=== PATIENT | male | born 1975 | race Caucasian/White ===

== ENCOUNTER 2022-08-22 21:31 | Inpatient (IN) | payer OTHER, SELFPAY ==
[2022-08-22 22:05] VITALS: BP 134/68; PULSE 65; RESP 18; TEMP 36.6; O2SAT 100
[2022-08-22] MEDS: hydrOXYzine HCL 25 MG TABLET PO (23:19)
[2022-08-22] MEDS: cloNIDine HCL 0.1 MG TABLET PO (23:19)
[2022-08-22] MEDS: traZODone HCL 50 MG TABLET PO (23:19)
--- NOTE | 2022-08-23 01:02 | PC.ADMIT ---
Saul is a 47 year old caucasion male admitted to [facility] at 2140 via stretcher from [facility] accompanied by 2 EMT's. CV signed, 15 min unit safety observation in place. Diagnosis Schizophrenia and polysubstance use. Presented to [facility] with complaints of psychological distress and SI. Saul was cooperative with admission, body /sharps check completed, denies SI/AVH, reports feels safe on the unit. CIWA every 4 hours, current score 0. No documented medical issues, he reported having brain tumors . He is alert/oriented, ambulatory with steady gait. Prescribed medication includes 240 mg of methadone daily, methadone clinic is [facility] on [address], [place]. MD Krishnan updated, orders placed. Hospitalist José Antonio notified of admission as well. Oriented to room/unit and snacks provided.
--- NOTE | 2022-08-23 06:43 | HE.PHANOTE ---
RE METHADONE PATIENT GETS 240MG FROM [facility], LAST DOSED 08/22/22 CANDI
[2022-08-23 07:56] LABS: Estimated Average Glucose 111 mg/dL; Hemoglobin A1c % 5.5 %
[2022-08-23 08:00] VITALS: BP 128/93; PULSE 93; RESP 18; TEMP 36.7; O2SAT 97
[2022-08-23 08:09] LABS: Alanine Aminotransferase 38 U/L (0-40); Albumin Level 3.5 g/dL (3.5-5.0); Alkaline Phosphatase 81 U/L (39-117); Anion Gap 13 (12-20); Aspartate Amino Transferase 30 U/L (5-37); Bilirubin Total 0.4 mg/dL (0.0-1.0); Blood Urea Nitrogen 13 mg/dL (9-16); Calcium 9.2 mg/dL (8.4-10.2); Carbon Dioxide 28 mmol/L (22-29); Chloride 101 mmol/L (96-108); Cholesterol 183 mg/dL; Estimated Glomerular Filt Rate > 60; Glucose Fasting 108 mg/dL (60-99); HDL Cholesterol 42 mg/dL; LDL Cholesterol Calculated 104 mg/dl; Potassium 4.5 mmol/L (3.3-5.1); Sodium 137 mmol/L (135-145); Total Protein 7.2 g/dL (6.5-8.0); Triglycerides 187 mg/dL
[2022-08-23] MEDS: LORazepam 1 MG TABLET PO ×4 (08:36→20:10)
[2022-08-23] MEDS: OXcarbazepine 300 MG TABLET 600 MG PO ×2 (08:36→20:10)
[2022-08-23] MEDS: Gabapentin 400 MG CAPSULE 800 MG PO ×3 (08:36→20:09)
[2022-08-23] MEDS: QUEtiapine Fumarate 100 MG TABLET PO (08:36)
[2022-08-23] MEDS: Nicotine Polacrilex 2 MG GUM 4 MG BUCCAL ×3 (08:36→20:11)
[2022-08-23] MEDS: methADONE HCl 20 MG/2 ML ORAL.CONC 240 MG PO (08:39)
[2022-08-23] MEDS: Promethazine HCL 25 MG TABLET 50 MG PO (08:45)
--- NOTE | 2022-08-23 11:19 | HO.PSYADMNOT ---
HPI Date of Service: 08/23/22 Chief Complaint: Paranoia Schizophrenia,PTSD Sources of Information: patient interviewed, chart reviewed and crisis/core team assessment reviewed HPI Subjective Notes: Huggins Warning and Conditional Voluntary Narrative: Patient is a 47-year-old male with reported history of schizophrenia, PTSD, opioid multiple psychiatric and missions, dependence on methadone and polysubstance abuse who presents for suicidal ideation and the face of substance abuse an intermittent missing her medication. Patient reports that he takes his medications regularly however he lives at home alone and says he gets lonely. Sometimes the loneliness gets overwhelming and he says he feels that there is Ms. Rhythm never ends... Patient started feeling suicidal so he got himself to the emergency room. Patient reports that he drinks pt of vodka a day and takes 6 mg of Ativan per day which she bought on the streets. He acknowledges that his substance abuse, which he uses to alleviate his depression, is also in the way of overcoming his depression and anxiety. He was last sober about year ago and relapsed this past March. Patient reports that auditory hallucinations have increased over the last week and he thinks it is probably because he has missed medications for a few days. Past Psychiatric History: Patient reports multiple psychiatric admissions Medical Evaluation Reviewed: Hospitalist Byalee Singletary [facility] Medical History (Updated 08/23/22 @ 18:19 by Hal Krishnan MD) Alcohol dependence Cocaine use disorder Epilepsy Opioid dependence Opioid use disorder PTSD (post-traumatic stress disorder) Schizophrenia Suicidal ideation Surgical History History of brain surgery Family History: Deferred Social History: Lives alone in his own apartment Has 5 children however he does not see them other than his eldest daughter Substance History: Opiate dependence on methadone; IV heroin abuse ongoing; intermittent cocaine use, Ativan abuse Trauma History: Patient endorses history of trauma but does not disclose Diagnostics Vital Signs (24Hr): Vital Signs - 24 hr 08/22/22 22:05 08/23/22 08:00 Temperature 97.8 F 98.0 F Pulse Rate 65 93 Respiratory Rate 18 18 Blood Pressure 134/68 128/93 H Pulse Oximetry 100 97 Oxygen Delivery Method Room Air Room Air Labs 08/23/22 07:16 Labs: Laboratory Results - last 48 hr 08/23/22 08/23/22 07:16 07:16 Sodium 137 Potassium 4.5 Chloride 101 Carbon Dioxide 28 Anion Gap 13 BUN 13 Creatinine 0.86 Estim Creat Clear Calc TNP Estimated GFR > 60 Fasting Glucose 108 H Estimat Average Glucose 111 Hemoglobin A1c % 5.5 Calcium 9.2 Total Bilirubin 0.4 AST 30 ALT 38 Alkaline Phosphatase 81 Total Protein 7.2 Albumin 3.5 Triglycerides 187 Cholesterol 183 LDL Cholesterol, Calc 104 HDL Cholesterol 42 Meds/Allergies Meds Home Medications Medication Instructions Recorded Confirmed Type Seroquel 150 mg PO NEEDED PRN Anxiety 08/22/22 08/22/22 History Seroquel 200 mg PO BEDTIME 08/22/22 08/22/22 History bupropion HCl 450 mg PO DAILY 08/22/22 08/22/22 History clonidine (PF) 0.1 mg PO TID PRN Anxiety 08/22/22 08/22/22 History gabapentin 800 mg tablet 800 mg PO TID 08/22/22 08/22/22 History (Neurontin) methadone 10 mg tablet 240 mg PO DAILY 08/22/22 08/22/22 History oxcarbazepine 600 mg PO BID 08/22/22 08/22/22 History promethazine 50 mg PO DAILY PRN Nausea 08/22/22 08/22/22 History quetiapine 100 mg tablet (Seroquel) 100 mg PO DAILY 08/22/22 08/22/22 History Allergies Allergies Allergy/AdvReac Type Severity Reaction Status Date / Time Penicillins Allergy Unknown Verified 08/22/22 22:06 shellfish derived Allergy Unknown Verified 08/22/22 22:05 Mental Status Exam Mental Status Exam Narrative: Pt is alert and oriented; behavior is cooperative, friendly and calm; patient is not in distress; dressed in casual attire, unkempt but with neatly cut hair and adequate hygiene; mood is described as depressed and affect congruen, down cast; eye contact appropriate; Speech is a little slow, a little low volume, normal prosody; psychomotor retardation present; thought process is organized and goal directed; Thought content is on dealing with depression and loneliness; on treatment; otherwise pertinent to relevant topics and without any delusional content, paranoid ideations or grandiosity; intermittent SI; no HI. Intermittent AH Patients insight and judgment impaired Assessment & Plan Assessment & Plan (1) PTSD (post-traumatic stress disorder): Status: Acute Code(s): F43.10 - Post-traumatic stress disorder, unspecified (2) Opioid dependence: Status: Acute Code(s): F11.20 - Opioid dependence, uncomplicated (3) Opioid use disorder: Status: Acute Code(s): F11.90 - Opioid use, unspecified, uncomplicated (4) Alcohol dependence: Status: Acute Code(s): F10.20 - Alcohol dependence, uncomplicated (5) Cocaine use disorder: Status: Acute Code(s): F14.10 - Cocaine abuse, uncomplicated Plan Patient is a 47-year-old male with reported history of schizophrenia, PTSD, opioid multiple psychiatric and missions, dependence on methadone and polysubstance abuse who presents for suicidal ideation and the face of substance abuse an intermittent missing her medication. -AH which seem to have resolved with restarting medications -patient drinks a pt of liquor a day and abuses Ativan 6 mg a day -will restart home meds except for Wellbutrin which will hold until better detoxed Plan: CV Q 15 minute checks CIWA with p.r.n. Ativan Will also schedule Ativan taper given the fact that he has been abusing Ativan as well as drinking Continue methadone 240 mg daily Continue Seroquel 100 mg daily Continue Seroquel 200 mg q.h.s. Continue gabapentin 800 mg t.i.d. Continue Trileptal 600 mg b.i.d. Old Wellbutrin XL 450 mg for now until better detox Patient educated on: diagnosis, medication risk/benefits, substance abuse and therapeutic strategies Informed Consent: understands Reason for continued inpatient stay Substantial Risk for: rapid decompensation and med/psych decompensation Statement Statement: I have reviewed the history and physical and performed a pertinent examination on my patient. No changes have occurred unless specified. If the History and Physical was not performed prior to admission, the Hospitalist's service will be consulted for completing the admission physical. Time Spent With Patient Time: Total time managing care of this patient today ____ minutes.
[2022-08-23] MEDS: cloNIDine HCL 0.1 MG TABLET PO (14:22)
--- NOTE | 2022-08-23 15:26 | HO.HSGERICON ---
History of Present Illness Data of Consult Service Date: 08/23/22 Primary Care Provider: Unknown Physician HPI 47-year-old male with history of schizophrenia, SI, admitted to [facility] for management of SI and psychosocial distress. We are asked to see this patient for admission physical. Patient currently is not suicidal, he has no acute complaint. Reports history of brain procedure due to accident and states that he has history of seizures as a result of his brain surgery, and he is on antiepileptics. He is requesting Ensure with his diet as he says the food here is not good. Otherwise denies any chest pain, no shortness of breath, no abdominal pain nausea or vomiting, no diarrhea or constipation. no urinary sx and no lower extremity edema. Vitals reviewed, stable Labs reviewed unremarkable Review of Systems Review of Systems: Yes all other systems are reviewed and are negative [facility] Medical History (Updated 08/23/22 @ 15:40 by Batsheva Chou MD) Epilepsy Schizophrenia Suicidal ideation Surgical History History of brain surgery Social History Household Members: None Housing: Apartment Do you presently have visiting nurse or other home services: No Patient Tobacco Use Status: Current everyday Tobacco user Tobacco use type: Cigarette Cigarette Packs Per Day: 1 Cigarettes Per Day: 20.0 Smoked in Last 30 Days: Yes e-Cigarette/Vaping Use: Former Use Patient Interested in Nicotine Replacement: Yes (wants gum) Patient Given Instructions on How to Stop Smoking: No (not interested at this time to quit) Second Hand Smoke Exposure: No Use of substances other than those prescribed or required for medical reasons: Yes Substance Use Type: Heroin and Other Substance Use Frequency: Recent Binge Last Used Substance: Hours (ago) Currently Displaying Signs/Symptoms of Drug Intoxication Withdrawal: No Any prior treatment program specific to substance use: Yes Have you been hit, kicked, punched, or otherwise hurt by someone within the past year? If so, by whom?: No Do you feel safe in your current relationship?: No Current Relationship Is there a partner from a previous relationship who is making you feel unsafe now?: No Are you made to feel afraid or neglected: No Advance Directives: No Advance Directives Information Provided: No Do you have thoughts of harming others: None Do you have a plan to hurt others: No Plan Recently lost weight without trying: No How much weight loss: Not applicable Eating poorly because of decreased appetite: No Nutrition screen score: 0 Nutrition Risks: No Nutritional Risk Poor oral hygiene: No Meds Allergies Allergy/AdvReac Type Severity Reaction Status Date / Time Penicillins Allergy Unknown Verified 08/22/22 22:06 shellfish derived Allergy Unknown Verified 08/22/22 22:05 Active Medications: Current Medications Acetaminophen (Acetaminophen 325 Mg Tablet) 650 mg PO Q6H PRN PRN Reason: Headache/Pain Mild Scale (1-3) Al Hydroxide/Mg Hydroxide (Magnesium Hydrox/Alum Hydrox 30 Ml Oral.Susp) 30 ml PO Q6H PRN PRN Reason: Heartburn/Nausea Clonidine HCl (Clonidine Hcl 0.1 Mg Tablet) 0.1 mg PO TID PRN PRN Reason: Anxiety Last Admin: 08/23/22 14:22 Dose: 0.1 mg Gabapentin (Gabapentin 400 Mg Capsule) 800 mg PO TID [facility] Last Admin: 08/23/22 14:19 Dose: 800 mg Hydroxyzine HCl (Hydroxyzine Hcl 25 Mg Tablet) 25 mg PO Q6H PRN PRN Reason: Anxiety Last Admin: 08/22/22 23:19 Dose: 25 mg Lorazepam (Lorazepam 1 Mg Tablet) 1 mg PO Q2H PRN PRN Reason: CIWA 6-10 Last Admin: 08/23/22 08:36 Dose: 1 mg Lorazepam (Lorazepam 1 Mg Tablet) 2 mg PO Q2H PRN PRN Reason: CIWA 11 and above Lorazepam (Lorazepam 1 Mg Tablet) 1 mg PO TID [facility] Stop: 08/24/22 23:00 Last Admin: 08/23/22 14:19 Dose: 1 mg Lorazepam (Lorazepam 1 Mg Tablet) 1 mg PO BID [facility] Stop: 08/26/22 23:00 Magnesium Hydroxide (Milk Of Magnesia 30 Ml Oral.Susp) 30 ml PO DAILY PRN PRN Reason: Constipation Methadone HCl (Methadone Hcl 20 Mg/2 Ml Oral.Conc) 240 mg PO DAILY [facility] Last Admin: 08/23/22 08:39 Dose: 240 mg Nicotine (Nicotine 21 Mg Patch.Td24) 21 mg TRANSDERMA DAILY PRN PRN Reason: Nicotine Cravings Nicotine Polacrilex (Nicotine Polacrilex 2 Mg Gum) 4 mg BUCCAL Q2H PRN PRN Reason: Nicotine Cravings Last Admin: 08/23/22 14:36 Dose: 4 mg Olanzapine (Olanzapine 5 Mg Tablet) 5 mg PO TID PRN PRN Reason: agitation Oxcarbazepine (Oxcarbazepine 300 Mg Tablet) 600 mg PO BID [facility] RAFA[facility] Last Admin: 08/23/22 08:36 Dose: 600 mg Promethazine HCl (Promethazine Hcl 25 Mg Tablet) 50 mg PO DAILY PRN PRN Reason: Nausea Last Admin: 08/23/22 08:45 Dose: 50 mg Quetiapine Fumarate (Quetiapine Fumarate 100 Mg Tablet) 100 mg PO DAILY [facility] RAFA[facility] Last Admin: 08/23/22 08:36 Dose: 100 mg Quetiapine Fumarate (Quetiapine Fumarate 50 Mg Tablet) 150 mg PO DAILY PRN PRN Reason: Anxiety Quetiapine Fumarate (Quetiapine Fumarate 200 Mg Tablet) 200 mg PO BEDTIME JOSE RAFAEL Trazodone HCl (Trazodone Hcl 50 Mg Tablet) 50 mg PO BEDTIME MRX1 PRN PRN Reason: Insomnia Last Admin: 08/22/22 23:19 Dose: 50 mg Home Medications Medication Instructions Recorded Confirmed Last Taken Type Seroquel 150 mg PO NEEDED PRN Anxiety 08/22/22 08/22/22 08/22/22 History Seroquel 200 mg PO BEDTIME 08/22/22 08/22/22 08/21/22 History bupropion HCl 450 mg PO DAILY 08/22/22 08/22/22 08/22/22 History clonidine (PF) 0.1 mg PO TID PRN Anxiety 08/22/22 08/22/22 08/22/22 History 0.1mg gabapentin 800 mg tablet 800 mg PO TID 08/22/22 08/22/22 08/22/22 14:00 History (Neurontin) methadone 10 mg tablet 240 mg PO DAILY 08/22/22 08/22/22 08/22/22 09:00 History oxcarbazepine 600 mg PO BID 08/22/22 08/22/22 08/22/22 History promethazine 50 mg PO DAILY PRN Nausea 08/22/22 08/22/22 08/22/22 History quetiapine 100 mg tablet (Seroquel) 100 mg PO DAILY 08/22/22 08/22/22 08/22/22 History Results Labs 08/23/22 07:16 Labs: Laboratory Results - last 24 hr 08/23/22 08/23/22 07:16 07:16 Anion Gap 13 Estim Creat Clear Calc TNP Estimated GFR > 60 Fasting Glucose 108 H Estimat Average Glucose 111 Hemoglobin A1c % 5.5 Calcium 9.2 Total Bilirubin 0.4 AST 30 ALT 38 Alkaline Phosphatase 81 Total Protein 7.2 Albumin 3.5 Triglycerides 187 Cholesterol 183 LDL Cholesterol, Calc 104 HDL Cholesterol 42 Assessment and Plan (1) Psychosocial distress: Status: Acute (2) Suicidal ideation: Status: Acute Plan 47-year-old male with past medical history of epilepsy, SI as well as schizophrenia comes into the hospital with psychosocial distress and SI We are asked to see this patient for admission to physical # psychosocial distress - management per psych team - currently not having any SI # epilepsy - continue antiepileptics Thank you for allowing us to see this patient, we will sign off at this time patient has no acute medical issues Time Spent With Patient Time: Total time managing care of this patient today ____ minutes. Physical Exam Vital Signs: Last Vital Signs Temp 98.0 F 08/23/22 08:00 Pulse 93 08/23/22 08:00 Resp 18 08/23/22 08:00 BP 128/93 H 08/23/22 08:00 Pulse Ox 97 08/23/22 08:00 O2 Del Method Room Air 08/23/22 08:00 Const General: cooperative, comfortable and no acute distress Resp Other: Lungs clear to auscultations No respiratory distress Cardio Other: Normal Rate and rhythm GI Other: Abdomen is soft, nontender, no rebound or guarding Skin Other: No lesions Neuro Other: Alert oriented x3 Cranial nerves: Yes CN's II-XII intact bilaterally Extrem Other: No lower extremity edema
[2022-08-23 18:00] VITALS: BP 136/79; PULSE 78; RESP 18; TEMP 36.6; O2SAT 98
[2022-08-23] MEDS: QUEtiapine Fumarate 200 MG TABLET PO (20:10)
[2022-08-23] MEDS: traZODone HCL 50 MG TABLET PO (20:11)
[2022-08-23] MEDS: hydrOXYzine HCL 25 MG TABLET PO (20:11)
[2022-08-23] MEDS: Acetaminophen 325 MG TABLET 650 MG PO (20:14)
[2022-08-23] MEDS: LORazepam 1 MG TABLET 2 MG PO (21:50)
[2022-08-24] MEDS: LORazepam 1 MG TABLET PO ×5 (03:16→13:55)
[2022-08-24 08:00] VITALS: BP 136/102; PULSE 84; RESP 18; TEMP 36; O2SAT 97
[2022-08-24] MEDS: QUEtiapine Fumarate 100 MG TABLET PO (08:21)
[2022-08-24] MEDS: Gabapentin 400 MG CAPSULE 800 MG PO ×3 (08:21→20:31)
[2022-08-24] MEDS: Nicotine Polacrilex 2 MG GUM 4 MG BUCCAL ×2 (08:21→20:31)
[2022-08-24] MEDS: OXcarbazepine 300 MG TABLET 600 MG PO ×2 (08:21→20:31)
[2022-08-24] MEDS: Promethazine HCL 25 MG TABLET 50 MG PO (08:21)
[2022-08-24] MEDS: methADONE HCl 20 MG/2 ML ORAL.CONC 240 MG PO (08:22)
--- NOTE | 2022-08-24 10:34 | HO.PSYCHPN ---
Subjective Subjective Date of Service: 08/24/22 Reason For Visit: Paranoia Schizophrenia,PTSD Interim History: Met with patient; discussed with team Patient reports he is feeling better today but still feeling much withdrawal. Security Compliance Engineer extended Ativan taper since patient is significantly scoring on CIWA.. Patient denies AH which he says is gotten better. Denies SI. Shared that he has grateful for help received on the unit. Discussed history of symptoms and patient said that he has auditory hallucinations that tell him to do bad things even during times absent of depression; when he gets depressed, AH gets much worse. Denies any history of manic episodes. Discussed patient's seizure history and he has not had any seizures since several months ago. -added clonidine for anxiety since Ativan is to be tapered and wanted to see if this could help with anxiety rather than increasing total daily dose of Seroquel Diagnostics Vital Signs (24Hr): Vital Signs - 24 hr 08/23/22 18:00 08/24/22 08:00 Temperature 97.8 F 96.8 F Pulse Rate 78 84 Respiratory Rate 18 18 Blood Pressure 136/79 136/102 H Pulse Oximetry 98 97 Oxygen Delivery Method Room Air Room Air Labs 08/23/22 07:16 Labs: Laboratory Results - last 48 hr 08/23/22 08/23/22 07:16 07:16 Sodium 137 Potassium 4.5 Chloride 101 Carbon Dioxide 28 Anion Gap 13 BUN 13 Creatinine 0.86 Estim Creat Clear Calc TNP Estimated GFR > 60 Fasting Glucose 108 H Estimat Average Glucose 111 Hemoglobin A1c % 5.5 Calcium 9.2 Total Bilirubin 0.4 AST 30 ALT 38 Alkaline Phosphatase 81 Total Protein 7.2 Albumin 3.5 Triglycerides 187 Cholesterol 183 LDL Cholesterol, Calc 104 HDL Cholesterol 42 Medications Medications Current Medications Acetaminophen (Acetaminophen 325 Mg Tablet) 650 mg PO Q6H PRN PRN Reason: Headache/Pain Mild Scale (1-3) Last Admin: 08/23/22 20:14 Dose: 650 mg Al Hydroxide/Mg Hydroxide (Magnesium Hydrox/Alum Hydrox 30 Ml Oral.Susp) 30 ml PO Q6H PRN PRN Reason: Heartburn/Nausea Clonidine HCl (Clonidine Hcl 0.1 Mg Tablet) 0.1 mg PO TID PRN PRN Reason: Anxiety Last Admin: 08/23/22 14:22 Dose: 0.1 mg Gabapentin (Gabapentin 400 Mg Capsule) 800 mg PO TID JOSE RAFAEL Last Admin: 08/24/22 08:21 Dose: 800 mg Hydroxyzine HCl (Hydroxyzine Hcl 25 Mg Tablet) 25 mg PO Q6H PRN PRN Reason: Anxiety Last Admin: 08/23/22 20:11 Dose: 25 mg Lorazepam (Lorazepam 1 Mg Tablet) 1 mg PO Q2H PRN PRN Reason: CIWA 6-10 Last Admin: 08/24/22 08:21 Dose: 1 mg Lorazepam (Lorazepam 1 Mg Tablet) 2 mg PO Q2H PRN PRN Reason: CIWA 11 and above Last Admin: 08/23/22 21:50 Dose: 2 mg Lorazepam (Lorazepam 1 Mg Tablet) 1 mg PO TID COUNT INCLUDES THE [facility] Stop: 08/24/22 23:00 Last Admin: 08/24/22 08:21 Dose: 1 mg Lorazepam (Lorazepam 1 Mg Tablet) 1 mg PO BID COUNT INCLUDES THE [facility] Stop: 08/26/22 23:00 Magnesium Hydroxide (Milk Of Magnesia 30 Ml Oral.Susp) 30 ml PO DAILY PRN PRN Reason: Constipation Methadone HCl (Methadone Hcl 20 Mg/2 Ml Oral.Conc) 240 mg PO DAILY COUNT INCLUDES THE [facility] Last Admin: 08/24/22 08:22 Dose: 240 mg Nicotine (Nicotine 21 Mg Patch.Td24) 21 mg TRANSDERMA DAILY PRN PRN Reason: Nicotine Cravings Nicotine Polacrilex (Nicotine Polacrilex 2 Mg Gum) 4 mg BUCCAL Q2H PRN PRN Reason: Nicotine Cravings Last Admin: 08/24/22 08:21 Dose: 4 mg Olanzapine (Olanzapine 5 Mg Tablet) 5 mg PO TID PRN PRN Reason: agitation Oxcarbazepine (Oxcarbazepine 300 Mg Tablet) 600 mg PO BID COUNT INCLUDES THE [facility] Last Admin: 08/24/22 08:21 Dose: 600 mg Promethazine HCl (Promethazine Hcl 25 Mg Tablet) 50 mg PO DAILY PRN PRN Reason: Nausea Last Admin: 08/24/22 08:21 Dose: 50 mg Quetiapine Fumarate (Quetiapine Fumarate 100 Mg Tablet) 100 mg PO DAILY COUNT INCLUDES THE [facility] Last Admin: 08/24/22 08:21 Dose: 100 mg Quetiapine Fumarate (Quetiapine Fumarate 50 Mg Tablet) 150 mg PO DAILY PRN PRN Reason: Anxiety Quetiapine Fumarate (Quetiapine Fumarate 200 Mg Tablet) 200 mg PO BEDTIME COUNT INCLUDES THE [facility] Last Admin: 08/23/22 20:10 Dose: 200 mg Trazodone HCl (Trazodone Hcl 50 Mg Tablet) 50 mg PO BEDTIME MRX1 PRN PRN Reason: Insomnia Last Admin: 08/23/22 20:11 Dose: 50 mg Allergies Allergies Allergy/AdvReac Type Severity Reaction Status Date / Time Penicillins Allergy Unknown Verified 08/22/22 22:06 shellfish derived Allergy Unknown Verified 08/22/22 22:05 Assessment & Plan Assessment & Plan (1) Schizoaffective disorder, depressive type: Status: Acute Code(s): F25.1 - Schizoaffective disorder, depressive type (2) PTSD (post-traumatic stress disorder): Status: Acute Code(s): F43.10 - Post-traumatic stress disorder, unspecified (3) Opioid dependence: Status: Acute Code(s): F11.20 - Opioid dependence, uncomplicated (4) Opioid use disorder: Status: Acute Code(s): F11.90 - Opioid use, unspecified, uncomplicated (5) Alcohol dependence: Status: Acute Code(s): F10.20 - Alcohol dependence, uncomplicated (6) Cocaine use disorder: Status: Acute Code(s): F14.10 - Cocaine abuse, uncomplicated (7) Epilepsy: Status: Acute Code(s): G40.909 - Epilepsy, unspecified, not intractable, without status epilepticus Plan Patient is a 47-year-old male with reported history of schizophrenia, PTSD, opioid multiple psychiatric and missions, dependence on methadone and polysubstance abuse who presents for suicidal ideation and the face of substance abuse an intermittent missing her medication. -AH which seem to have resolved with restarting medications -patient drinks a pt of liquor a day and abuses Ativan 6 mg a day -will restart home meds except for Wellbutrin which will hold until better detoxed Hosptial course: 08/24 Patient reports he is feeling better today but still feeling much withdrawal. Security Compliance Engineer extended Ativan taper since patient is significantly scoring on CIWA.. Patient denies AH which he says is gotten better. Denies SI. Shared that he has grateful for help received on the unit. Discussed history of symptoms and patient said that he has auditory hallucinations that tell him to do bad things even during times absent of depression; when he gets depressed, AH gets much worse. Denies any history of manic episodes. Discussed patient's seizure history and he has not had any seizures since several months ago. -added clonidine for anxiety since Ativan is to be tapered and wanted to see if this could help with anxiety rather than increasing total daily dose of Seroquel; patient agrees if he stays sober maybe he will need Ativan so much -will change diagnosis to schizoaffective Plan: CV Q 15 minute checks CIWA with p.r.n. Ativan Will also schedule Ativan taper given the fact that he has been abusing Ativan as well as drinking AND has a seizure disorder Continue methadone 240 mg daily Continue Seroquel 100 mg daily Continue Seroquel 200 mg q.h.s. Continue gabapentin 800 mg t.i.d. for seizure disorder Continue Trileptal 600 mg b.i.d. for seizure disorder Holding Wellbutrin XL 450 mg for now until better detox and patient has seizure disorder Patient could use help setting up social interactions post discharge, as loneliness is a factor in relapse Hospitalist note: 47-year-old male with past medical history of epilepsy, SI as well as schizophrenia comes into the hospital with psychosocial distress and SI epilepsy - continue antiepileptics Patient educated on: diagnosis, medication risk/benefits, substance abuse and medical condition Informed Consent: understands Reason for continued inpatient stay Substantial Risk for: rapid decompensation Time Spent With Patient Time: Total time managing care of this patient today ____ minutes.
[2022-08-24] MEDS: cloNIDine HCL 0.1 MG TABLET PO (16:53)
[2022-08-24 17:00] VITALS: BP 152/94; PULSE 83; TEMP 36.4; O2SAT 96
[2022-08-24] MEDS: LORazepam 1 MG TABLET 2 MG PO ×2 (17:06→20:31)
--- NOTE | 2022-08-24 18:19 | PC.NURSE ---
Patient's CIWA score was 21. Prn Clonazapam and Clonidine were given. Rechecked patient at 1715. Patient is sound asleep in NAD, Dr. Krishnan aware of CIWA score and effectiveness of prn meds.
[2022-08-24] MEDS: QUEtiapine Fumarate 200 MG TABLET PO (20:31)
[2022-08-24] MEDS: traZODone HCL 50 MG TABLET PO (20:32)
[2022-08-25] MEDS: LORazepam 1 MG TABLET 2 MG PO (07:52)
[2022-08-25] MEDS: Gabapentin 400 MG CAPSULE 800 MG PO ×3 (07:52→23:31)
[2022-08-25] MEDS: QUEtiapine Fumarate 100 MG TABLET PO (07:52)
[2022-08-25] MEDS: OXcarbazepine 300 MG TABLET 600 MG PO ×2 (07:52→23:32)
[2022-08-25 07:55] VITALS: BP 126/103; PULSE 84; RESP 20; TEMP 36.1; O2SAT 95
[2022-08-25] MEDS: methADONE HCl 20 MG/2 ML ORAL.CONC 240 MG PO (08:07)
[2022-08-25] MEDS: chlordiazePOXIDE HCl 25 MG CAPSULE 50 MG PO ×2 (10:54→17:12)
[2022-08-25] MEDS: cloNIDine HCL 0.1 MG TABLET PO ×2 (10:54→23:35)
[2022-08-25] MEDS: Promethazine HCL 25 MG TABLET 50 MG PO (12:13)
[2022-08-25] MEDS: hydrOXYzine HCL 25 MG TABLET PO (12:13)
--- NOTE | 2022-08-25 13:47 | HO.PSYCHPN ---
Subjective Subjective Date of Service: 08/25/22 Reason For Visit: Paranoia Schizophrenia,PTSD Subjective Notes: Conditional Voluntary Healthcare Proxy: No Guardianship: No Medical Problems Affecting Mental Status: No Interim History: Pt in withdrawal with hx of seizure disorder. Ativan change to Librium with standing and prn dosing. Pt reports purchasing Ativan from the street and wants to see if OP team can prescribe him something for anxiety. He works with Dr. Linares from [facility] (message left). He is hoping to manage anxiety safely with a prescription vs having to return to the street. Reports antipsychotics increase psychotic sx, for example a recent increase of Seroquel precipitated increase in hallucinations. All I want is a fair chance to manage my symptoms. Pt reports he has housing, will not need referrals and all of the positive changes he has made in his life are due to his advocacy for him receiving the appropriate medications. States he is wanting to work with his OP team but needs to be heard regarding his needs for sx mgt. Medication Compliance: Yes Side effects from medications: No Attending Groups: No Review of Systems Acute medical concerns: No Medical Review of Systems: unchanged Mental Status Exam Mental Status Exam Patient Appearance: Fatigued Patient Orientation: Person, Place, Time and Situation Level of Consciousness: Alert Patient Behavior: Talkative and Good Eye Contact Mood Description: Depressed and Apprehensive Affect Description: Apprehensive Patient Cognition Impaired: No Ability to Follow Directions: Good Speech Pattern: Spontaneous Speech Memory Description: Intact Hallucinations: None Delusions: Not Present Thought Process: Distracted Thought Content: positive for [place] and positive for Circumstantial Depressive Symptoms: Increased Anxiety and Increased Irritability Judgement: Good Diagnostics Vital Signs (24Hr): Vital Signs - 24 hr 08/24/22 17:00 08/25/22 07:55 Temperature 97.5 F 97.0 F Pulse Rate 83 84 Respiratory Rate 20 Blood Pressure 152/94 H 126/103 H Pulse Oximetry 96 95 Oxygen Delivery Method Room Air Room Air Labs 08/23/22 07:16 Medications Medications Current Medications Acetaminophen (Acetaminophen 325 Mg Tablet) 650 mg PO Q6H PRN PRN Reason: Headache/Pain Mild Scale (1-3) Last Admin: 08/23/22 20:14 Dose: 650 mg Al Hydroxide/Mg Hydroxide (Magnesium Hydrox/Alum Hydrox 30 Ml Oral.Susp) 30 ml PO Q6H PRN PRN Reason: Heartburn/Nausea Chlordiazepoxide HCl (Chlordiazepoxide Hcl 25 Mg Capsule) 25 mg PO BID [facility] Chlordiazepoxide HCl (Chlordiazepoxide Hcl 25 Mg Capsule) 25 mg PO Q2H PRN PRN Reason: CIWA 6-10 Chlordiazepoxide HCl (Chlordiazepoxide Hcl 25 Mg Capsule) 50 mg PO Q2H PRN PRN Reason: ciwa 11 and above Last Admin: 08/25/22 10:54 Dose: 50 mg Clonidine HCl (Clonidine Hcl 0.1 Mg Tablet) 0.1 mg PO Q4H PRN PRN Reason: Anxiety Last Admin: 08/25/22 10:54 Dose: 0.1 mg Gabapentin (Gabapentin 400 Mg Capsule) 800 mg PO TID [facility] Last Admin: 08/25/22 07:52 Dose: 800 mg Hydroxyzine HCl (Hydroxyzine Hcl 25 Mg Tablet) 25 mg PO Q6H PRN PRN Reason: Anxiety Last Admin: 08/25/22 12:13 Dose: 25 mg Magnesium Hydroxide (Milk Of Magnesia 30 Ml Oral.Susp) 30 ml PO DAILY PRN PRN Reason: Constipation Methadone HCl (Methadone Hcl 20 Mg/2 Ml Oral.Conc) 240 mg PO DAILY [facility] Last Admin: 08/25/22 08:07 Dose: 240 mg Nicotine (Nicotine 21 Mg Patch.Td24) 21 mg TRANSDERMA DAILY PRN PRN Reason: Nicotine Cravings Nicotine Polacrilex (Nicotine Polacrilex 2 Mg Gum) 4 mg BUCCAL Q2H PRN PRN Reason: Nicotine Cravings Last Admin: 08/24/22 20:31 Dose: 4 mg Oxcarbazepine (Oxcarbazepine 300 Mg Tablet) 600 mg PO BID [facility] Last Admin: 08/25/22 07:52 Dose: 600 mg Promethazine HCl (Promethazine Hcl 25 Mg Tablet) 50 mg PO DAILY PRN PRN Reason: Nausea Last Admin: 08/25/22 12:13 Dose: 50 mg Quetiapine Fumarate (Quetiapine Fumarate 100 Mg Tablet) 100 mg PO DAILY [facility] Last Admin: 08/25/22 07:52 Dose: 100 mg Quetiapine Fumarate (Quetiapine Fumarate 200 Mg Tablet) 200 mg PO BEDTIME [facility] Last Admin: 08/24/22 20:31 Dose: 200 mg Quetiapine Fumarate (Quetiapine Fumarate 25 Mg Tablet) 25 mg PO TID PRN PRN Reason: Anxiety Trazodone HCl (Trazodone Hcl 50 Mg Tablet) 50 mg PO BEDTIME MRX1 PRN PRN Reason: Insomnia Last Admin: 08/24/22 20:32 Dose: 50 mg Allergies Allergies Allergy/AdvReac Type Severity Reaction Status Date / Time Penicillins Allergy Unknown Verified 08/22/22 22:06 seafood Allergy Unknown Verified 08/24/22 17:47 shellfish derived Allergy Unknown Verified 08/22/22 22:05 Assessment & Plan Assessment & Plan (1) Schizoaffective disorder, depressive type: Status: Acute Code(s): F25.1 - Schizoaffective disorder, depressive type (2) PTSD (post-traumatic stress disorder): Status: Acute Code(s): F43.10 - Post-traumatic stress disorder, unspecified (3) Opioid dependence: Status: Acute Code(s): F11.20 - Opioid dependence, uncomplicated (4) Opioid use disorder: Status: Acute Code(s): F11.90 - Opioid use, unspecified, uncomplicated (5) Alcohol dependence: Status: Acute Code(s): F10.20 - Alcohol dependence, uncomplicated (6) Cocaine use disorder: Status: Acute Code(s): F14.10 - Cocaine abuse, uncomplicated (7) Epilepsy: Status: Acute Code(s): G40.909 - Epilepsy, unspecified, not intractable, without status epilepticus Plan Patient is a 47-year-old male with reported history of schizophrenia, PTSD, opioid multiple psychiatric and missions, dependence on methadone and polysubstance abuse who presents for suicidal ideation and the face of substance abuse an intermittent missing her medication. -AH which seem to have resolved with restarting medications -patient drinks a pt of liquor a day and abuses Ativan 6 mg a day -will restart home meds except for Wellbutrin which will hold until better detoxed Hosptial course: 08/24 Patient reports he is feeling better today but still feeling much withdrawal. 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 Patient denies AH which he says is gotten better. Denies SI. Shared that he has grateful for help received on the unit. Discussed history of symptoms and patient said that he has auditory hallucinations that tell him to do bad things even during times absent of depression; when he gets depressed, AH gets much worse. Denies any history of manic episodes. Discussed patient's seizure history and he has not had any seizures since several months ago. -added clonidine for anxiety since Ativan is to be tapered and wanted to see if this could help with anxiety rather than increasing total daily dose of Seroquel; patient agrees if he stays sober maybe he will need Ativan so much -will change diagnosis to schizoaffective 08/25/22- Ativan change to Librium for detox, standing dose, and prn's Continue to monitor Plan: CV Q 15 minute checks CIWA with p.r.n. Ativan Will also schedule Ativan taper given the fact that he has been abusing Ativan as well as drinking AND has a seizure disorder Continue methadone 240 mg daily Continue Seroquel 100 mg daily Continue Seroquel 200 mg q.h.s. Continue gabapentin 800 mg t.i.d. for seizure disorder Continue Trileptal 600 mg b.i.d. for seizure disorder Holding Wellbutrin XL 450 mg for now until better detox and patient has seizure disorder Patient could use help setting up social interactions post discharge, as loneliness is a factor in relapse Hospitalist note: 47-year-old male with past medical history of epilepsy, SI as well as schizophrenia comes into the hospital with psychosocial distress and SI epilepsy - continue antiepileptics Patient educated on: medication risk/benefits Informed Consent: understands Reason for continued inpatient stay Substantial Risk for: med/psych decompensation Time Spent With Patient Time: Total time managing care of this patient today ____ minutes.
[2022-08-25] MEDS: chlordiazePOXIDE HCl 25 MG CAPSULE PO ×2 (15:07→23:31)
[2022-08-25 23:30] VITALS: BP 142/97; PULSE 91; TEMP 36.2; O2SAT 97
[2022-08-25] MEDS: QUEtiapine Fumarate 200 MG TABLET PO (23:32)
[2022-08-26 06:00] VITALS: BP 120/89; PULSE 89; RESP 16; TEMP 36.6; O2SAT 95
[2022-08-26] MEDS: methADONE HCl 20 MG/2 ML ORAL.CONC 240 MG PO (08:44)
[2022-08-26] MEDS: QUEtiapine Fumarate 100 MG TABLET PO (08:44)
[2022-08-26] MEDS: OXcarbazepine 300 MG TABLET 600 MG PO ×2 (08:45→19:59)
[2022-08-26] MEDS: Gabapentin 400 MG CAPSULE 800 MG PO ×3 (08:45→19:59)
[2022-08-26] MEDS: chlordiazePOXIDE HCl 25 MG CAPSULE PO ×3 (08:45→16:52)
[2022-08-26] MEDS: cloNIDine HCL 0.1 MG TABLET PO (08:45)
[2022-08-26] MEDS: hydrOXYzine HCL 25 MG TABLET PO (08:45)
--- NOTE | 2022-08-26 12:25 | HO.PSYCHPN ---
Subjective Subjective Date of Service: 08/26/22 Reason For Visit: Paranoia Schizophrenia,PTSD Subjective Notes: Conditional Voluntary Healthcare Proxy: No Guardianship: No Medical Problems Affecting Mental Status: No Interim History: Pt sleeping when attempted to see today. Preferred to rest. Later in the day pt with agitation. Dr. Krishnan increased standing Librium to 50 mg tid. No return call from OP group yet. CIWA monitoring continues. Pt hoping to discharge by Thursday, will continue to monitor for detox and medical needs, along with OP planning. Medication Compliance: Yes Side effects from medications: No Attending Groups: Yes Review of Systems Acute medical concerns: No Medical Review of Systems: unchanged Mental Status Exam Mental Status Exam Patient Appearance: Fatigued Patient Orientation: Person, Place, Time and Situation Level of Consciousness: Alert Patient Behavior: Talkative and Good Eye Contact Mood Description: Depressed and Apprehensive Affect Description: Apprehensive Patient Cognition Impaired: No Ability to Follow Directions: Good Speech Pattern: Spontaneous Speech Memory Description: Intact Hallucinations: None Delusions: Not Present Thought Process: Distracted Thought Content: positive for [place] and positive for Circumstantial Depressive Symptoms: Increased Anxiety and Increased Irritability Judgement: Good Diagnostics Vital Signs (24Hr): Vital Signs - 24 hr 08/25/22 23:30 08/26/22 06:00 Temperature 97.2 F 97.8 F Pulse Rate 91 89 Respiratory Rate 16 Blood Pressure 142/97 H 120/89 Pulse Oximetry 97 95 Oxygen Delivery Method Room Air Room Air Labs 08/23/22 07:16 Medications Medications Current Medications Acetaminophen (Acetaminophen 325 Mg Tablet) 650 mg PO Q6H PRN PRN Reason: Headache/Pain Mild Scale (1-3) Last Admin: 08/23/22 20:14 Dose: 650 mg Al Hydroxide/Mg Hydroxide (Magnesium Hydrox/Alum Hydrox 30 Ml Oral.Susp) 30 ml PO Q6H PRN PRN Reason: Heartburn/Nausea Chlordiazepoxide HCl (Chlordiazepoxide Hcl 25 Mg Capsule) 25 mg PO Q2H PRN PRN Reason: CIWA 6-10 Chlordiazepoxide HCl (Chlordiazepoxide Hcl 25 Mg Capsule) 50 mg PO Q2H PRN PRN Reason: ciwa 11 and above Last Admin: 08/25/22 17:12 Dose: 50 mg Chlordiazepoxide HCl (Chlordiazepoxide Hcl 25 Mg Capsule) 25 mg PO TID [facility] Last Admin: 08/26/22 08:45 Dose: 25 mg Clonidine HCl (Clonidine Hcl 0.1 Mg Tablet) 0.1 mg PO Q4H PRN PRN Reason: Anxiety Last Admin: 08/26/22 08:45 Dose: 0.1 mg Gabapentin (Gabapentin 400 Mg Capsule) 800 mg PO TID [facility] Last Admin: 08/26/22 08:45 Dose: 800 mg Hydroxyzine HCl (Hydroxyzine Hcl 25 Mg Tablet) 25 mg PO Q6H PRN PRN Reason: Anxiety Last Admin: 08/26/22 08:45 Dose: 25 mg Magnesium Hydroxide (Milk Of Magnesia 30 Ml Oral.Susp) 30 ml PO DAILY PRN PRN Reason: Constipation Methadone HCl (Methadone Hcl 20 Mg/2 Ml Oral.Conc) 240 mg PO DAILY [facility] Last Admin: 08/26/22 08:44 Dose: 240 mg Nicotine (Nicotine 21 Mg Patch.Td24) 21 mg TRANSDERMA DAILY PRN PRN Reason: Nicotine Cravings Nicotine Polacrilex (Nicotine Polacrilex 2 Mg Gum) 4 mg BUCCAL Q2H PRN PRN Reason: Nicotine Cravings Last Admin: 08/24/22 20:31 Dose: 4 mg Oxcarbazepine (Oxcarbazepine 300 Mg Tablet) 600 mg PO BID [facility] Last Admin: 08/26/22 08:45 Dose: 600 mg Promethazine HCl (Promethazine Hcl 25 Mg Tablet) 50 mg PO DAILY PRN PRN Reason: Nausea Last Admin: 08/25/22 12:13 Dose: 50 mg Quetiapine Fumarate (Quetiapine Fumarate 100 Mg Tablet) 100 mg PO DAILY [facility] Last Admin: 08/26/22 08:44 Dose: 100 mg Quetiapine Fumarate (Quetiapine Fumarate 200 Mg Tablet) 200 mg PO BEDTIME [facility] Last Admin: 08/25/22 23:32 Dose: 200 mg Quetiapine Fumarate (Quetiapine Fumarate 25 Mg Tablet) 25 mg PO TID PRN PRN Reason: Anxiety Trazodone HCl (Trazodone Hcl 50 Mg Tablet) 50 mg PO BEDTIME MRX1 PRN PRN Reason: Insomnia Last Admin: 08/24/22 20:32 Dose: 50 mg Allergies Allergies Allergy/AdvReac Type Severity Reaction Status Date / Time Penicillins Allergy Unknown Verified 08/22/22 22:06 seafood Allergy Unknown Verified 08/24/22 17:47 shellfish derived Allergy Unknown Verified 08/22/22 22:05 Assessment & Plan Assessment & Plan (1) Schizoaffective disorder, depressive type: Status: Acute Code(s): F25.1 - Schizoaffective disorder, depressive type (2) PTSD (post-traumatic stress disorder): Status: Acute Code(s): F43.10 - Post-traumatic stress disorder, unspecified (3) Opioid dependence: Status: Acute Code(s): F11.20 - Opioid dependence, uncomplicated (4) Opioid use disorder: Status: Acute Code(s): F11.90 - Opioid use, unspecified, uncomplicated (5) Alcohol dependence: Status: Acute Code(s): F10.20 - Alcohol dependence, uncomplicated (6) Cocaine use disorder: Status: Acute Code(s): F14.10 - Cocaine abuse, uncomplicated (7) Epilepsy: Status: Acute Code(s): G40.909 - Epilepsy, unspecified, not intractable, without status epilepticus Plan Patient is a 47-year-old male with reported history of schizophrenia, PTSD, opioid multiple psychiatric and missions, dependence on methadone and polysubstance abuse who presents for suicidal ideation and the face of substance abuse an intermittent missing her medication. -AH which seem to have resolved with restarting medications -patient drinks a pt of liquor a day and abuses Ativan 6 mg a day -will restart home meds except for Wellbutrin which will hold until better detoxed Hosptial course: 08/24 Patient reports he is feeling better today but still feeling much withdrawal. 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 Patient denies AH which he says is gotten better. Denies SI. Shared that he has grateful for help received on the unit. Discussed history of symptoms and patient said that he has auditory hallucinations that tell him to do bad things even during times absent of depression; when he gets depressed, AH gets much worse. Denies any history of manic episodes. Discussed patient's seizure history and he has not had any seizures since several months ago. -added clonidine for anxiety since Ativan is to be tapered and wanted to see if this could help with anxiety rather than increasing total daily dose of Seroquel; patient agrees if he stays sober maybe he will need Ativan so much -will change diagnosis to schizoaffective 08/26/22- Increase Librium to 50 mg tid Plan: CV Q 15 minute checks CIWA with p.r.n. Ativan Will also schedule Ativan taper given the fact that he has been abusing Ativan as well as drinking AND has a seizure disorder Continue methadone 240 mg daily Continue Seroquel 100 mg daily Continue Seroquel 200 mg q.h.s. Continue gabapentin 800 mg t.i.d. for seizure disorder Continue Trileptal 600 mg b.i.d. for seizure disorder Holding Wellbutrin XL 450 mg for now until better detox and patient has seizure disorder Patient could use help setting up social interactions post discharge, as loneliness is a factor in relapse Hospitalist note: 47-year-old male with past medical history of epilepsy, SI as well as schizophrenia comes into the hospital with psychosocial distress and SI epilepsy - continue antiepileptics Informed Consent: understands Reason for continued inpatient stay Substantial Risk for: med/psych decompensation Time Spent With Patient Time: Total time managing care of this patient today ____ minutes.
[2022-08-26] MEDS: Promethazine HCL 25 MG TABLET 50 MG PO (16:53)
[2022-08-26 18:00] VITALS: RESP 16
[2022-08-26] MEDS: QUEtiapine Fumarate 200 MG TABLET PO (19:59)
[2022-08-26] MEDS: chlordiazePOXIDE HCl 25 MG CAPSULE 50 MG PO (19:59)
[2022-08-27] MEDS: OXcarbazepine 300 MG TABLET 600 MG PO ×2 (08:13→20:40)
[2022-08-27] MEDS: Gabapentin 400 MG CAPSULE 800 MG PO ×3 (08:13→20:39)
[2022-08-27] MEDS: Thiamine HCL 100 MG TABLET PO (08:13)
[2022-08-27] MEDS: Multivitamin TABLET 1 TAB PO (08:13)
[2022-08-27] MEDS: chlordiazePOXIDE HCl 25 MG CAPSULE 50 MG PO ×3 (08:13→20:40)
[2022-08-27] MEDS: Folic Acid 1 MG TABLET PO (08:13)
[2022-08-27] MEDS: methADONE HCl 20 MG/2 ML ORAL.CONC 240 MG PO (08:17)
[2022-08-27 08:29] VITALS: BP 131/73; PULSE 89; RESP 16; TEMP 36.7; O2SAT 96
[2022-08-27 08:37] LABS: MANUAL DIFF FLAG NO
[2022-08-27 08:43] LABS: Basophils Absolute Auto 0.1 X10*3/uL (0.0-0.2); Basophils Percent Auto 0.6 % (0-2); Eosinophils Absolute Auto 0.4 X10*3/uL (0.0-0.4); Eosinophils Percent Auto 4.3 % (0-4); Hematocrit 49.3 % (42.0-52.0); Hemoglobin 15.9 g/dl (14.0-18.0); Imm Gran Pct Auto 3.1 % (0.0-0.4); Lymphocytes Absolute Auto 3.1 X10*3/uL (1.2-4.9); Lymphocytes Percent Auto 32.6 % (20-40); Mean Corpuscular HGB Conc 32.3 g/dl (31.0-36.0); Mean Corpuscular Hemoglobin 30.9 pg (27.0-33.0); Mean Corpuscular Volume 95.9 fL (80.0-98.0); Mean Platelet Volume 10.2 fL (9.4-12.4); Monocytes Absolute Auto 1.3 X10*3/uL (0.1-1.2); Neutrophils Absolute Auto 4.4 x10*3/uL (2.0-8.3); Neutrophils Percent Auto 46.4 % (45-73); Platelet Count 241 X10*3/uL (160-400); Red Blood Count 5.14 X10*6/uL (4.60-5.80); Red Cell Distribution Width 13.6 % (11.0-16.0); White Blood Count 9.6 X10*3/uL (4.8-10.8)
[2022-08-27 09:44] LABS: Thyroid Stimulating Hormone 1.62 uIU/mL (0.32-4.0)
[2022-08-27 09:56] VITALS: BP 146/96; PULSE 91
[2022-08-27 09:56] LABS: Folate 12.3 ng/mL (> or = 4.0); Vitamin B12 623 pg/mL (200-900)
[2022-08-27] MEDS: cloNIDine HCL 0.1 MG TABLET PO ×3 (09:58→20:40)
[2022-08-27 14:44] VITALS: BP 136/94; PULSE 84
--- NOTE | 2022-08-27 17:26 | HO.PSYCHPN ---
Subjective Subjective Date of Service: 08/27/22 Reason For Visit: Paranoia Schizophrenia,PTSD Subjective Notes: Conditional Voluntary Healthcare Proxy: No Guardianship: No Medical Problems Affecting Mental Status: No Interim History: Review with team who reports pt has lability of mood. They report he becomes irritable after Methadone, has made a belt for his pants out of a towel/sheet when asked not to and has hit the wall once in frustration. Pt reports he can lose his temper, especially when he feels he is not treated fairly. He has asked for new referrals for psych providers and will attend [facility]. Discharge is planned for 08/29. He is interested in [facility] follow up for assistance with medications. During the meeting he is alert, oriented, euthymic, clear, denies SI, HI. Reports he is wanting to follow up with treatment and once established with OP providers wants to work with them and his addiction team to begin to taper Methadone and focus on his mood stabilizers for mgt of anxiety. We will taper Chlordiazepoxide in the next few weeks-for anxiety and to complete withdrawal with seizure risk. Pt reports he is comfortable with this plan of care and agrees to 08/29 discharge date. Medication Compliance: Yes Side effects from medications: No (sedation after Methadone, although he denies) Attending Groups: Intermittent Review of Systems Acute medical concerns: No Medical Review of Systems: unchanged Mental Status Exam Mental Status Exam Patient Appearance: Appropriate Patient Orientation: Person, Place, Time and Situation Level of Consciousness: Alert Patient Behavior: Appropriate, Talkative, Cooperative and Good Eye Contact Mood Description: Flat and Apprehensive Affect Description: Flat Patient Cognition Impaired: No Ability to Follow Directions: Good Speech Pattern: Spontaneous Speech Memory Description: Intact Hallucinations: None Delusions: Not Present Thought Process: Intact and Goal Oriented Thought Content: positive for [place], positive for Circumstantial, positive for Suicidal Ideation (denies) and positive for Homicidal Ideation (denies) Judgement: Good Diagnostics Vital Signs (24Hr): Vital Signs - 24 hr 08/26/22 18:00 08/27/22 08:29 08/27/22 09:56 Temperature 98.1 F Pulse Rate 89 91 Respiratory Rate 16 16 Blood Pressure 131/73 146/96 H Pulse Oximetry 96 Oxygen Delivery Method Room Air 08/27/22 14:44 Temperature Pulse Rate 84 Respiratory Rate Blood Pressure 136/94 H Pulse Oximetry Oxygen Delivery Method Labs 08/27/22 08:29 08/23/22 07:16 Labs: Laboratory Results - last 48 hr 08/27/22 08/27/22 08/27/22 08:28 08:29 08:29 WBC 9.6 RBC 5.14 Hgb 15.9 Hct 49.3 MCV 95.9 MCH 30.9 MCHC 32.3 RDW 13.6 Plt Count 241 MPV 10.2 Immature Gran % (Auto) 3.1 H Neut % (Auto) 46.4 Lymph % (Auto) 32.6 [place] % (Auto) 13.0 H Eos % (Auto) 4.3 H Baso % (Auto) 0.6 Lymph # (Auto) 3.1 [place] # (Auto) 1.3 H Eos # (Auto) 0.4 Baso # (Auto) 0.1 Abs Immat Gran (auto) 0.30 H Absolute Neuts (auto) 4.4 Absolute Nucleated RBC 0.000 Nucleated RBC % (auto) 0.0 Vitamin B12 623 Folate 12.3 TSH 1.62 Medications Medications Current Medications Acetaminophen (Acetaminophen 325 Mg Tablet) 650 mg PO Q6H PRN PRN Reason: Headache/Pain Mild Scale (1-3) Last Admin: 08/23/22 20:14 Dose: 650 mg Al Hydroxide/Mg Hydroxide (Magnesium Hydrox/Alum Hydrox 30 Ml Oral.Susp) 30 ml PO Q6H PRN PRN Reason: Heartburn/Nausea Chlordiazepoxide HCl (Chlordiazepoxide Hcl 25 Mg Capsule) 25 mg PO Q2H PRN PRN Reason: CIWA 6-10 Chlordiazepoxide HCl (Chlordiazepoxide Hcl 25 Mg Capsule) 50 mg PO Q2H PRN PRN Reason: ciwa 11 and above Last Admin: 08/25/22 17:12 Dose: 50 mg Chlordiazepoxide HCl (Chlordiazepoxide Hcl 25 Mg Capsule) 50 mg PO TID [facility] RAFAEL Last Admin: 08/27/22 14:51 Dose: 50 mg Clonidine HCl (Clonidine Hcl 0.1 Mg Tablet) 0.1 mg PO Q4H PRN PRN Reason: Anxiety Last Admin: 08/27/22 09:58 Dose: 0.1 mg Clonidine HCl (Clonidine Hcl 0.1 Mg Tablet) 0.1 mg PO TID JOSE RAFAEL; Protocol Last Admin: 08/27/22 14:51 Dose: 0.1 mg Folic Acid (Folic Acid 1 Mg Tablet) 1 mg PO DAILY [facility] Last Admin: 08/27/22 08:13 Dose: 1 mg Gabapentin (Gabapentin 400 Mg Capsule) 800 mg PO TID [facility] Last Admin: 08/27/22 14:51 Dose: 800 mg Hydroxyzine HCl (Hydroxyzine Hcl 25 Mg Tablet) 25 mg PO Q6H PRN PRN Reason: Anxiety Last Admin: 08/26/22 08:45 Dose: 25 mg Magnesium Hydroxide (Milk Of Magnesia 30 Ml Oral.Susp) 30 ml PO DAILY PRN PRN Reason: Constipation Methadone HCl (Methadone Hcl 20 Mg/2 Ml Oral.Conc) 240 mg PO DAILY [facility] Last Admin: 08/27/22 08:17 Dose: 240 mg Multivitamins/Vitamin C (Multivitamin Tablet) 1 tab PO DAILY [facility] Last Admin: 08/27/22 08:13 Dose: 1 tab Nicotine (Nicotine 21 Mg Patch.Td24) 21 mg TRANSDERMA DAILY PRN PRN Reason: Nicotine Cravings Nicotine Polacrilex (Nicotine Polacrilex 2 Mg Gum) 4 mg BUCCAL Q2H PRN PRN Reason: Nicotine Cravings Last Admin: 08/24/22 20:31 Dose: 4 mg Oxcarbazepine (Oxcarbazepine 300 Mg Tablet) 600 mg PO BID [facility] Last Admin: 08/27/22 08:13 Dose: 600 mg Promethazine HCl (Promethazine Hcl 25 Mg Tablet) 50 mg PO DAILY PRN PRN Reason: Nausea Last Admin: 08/26/22 16:53 Dose: 50 mg Quetiapine Fumarate (Quetiapine Fumarate 100 Mg Tablet) 100 mg PO DAILY [facility] Last Admin: 08/27/22 08:16 Dose: Not Given Quetiapine Fumarate (Quetiapine Fumarate 200 Mg Tablet) 200 mg PO BEDTIME [facility] Last Admin: 08/26/22 19:59 Dose: 200 mg Quetiapine Fumarate (Quetiapine Fumarate 25 Mg Tablet) 25 mg PO TID PRN PRN Reason: Anxiety Thiamine HCl (Thiamine Hcl 100 Mg Tablet) 100 mg PO DAILY [facility] Last Admin: 08/27/22 08:13 Dose: 100 mg Trazodone HCl (Trazodone Hcl 50 Mg Tablet) 50 mg PO BEDTIME MRX1 PRN PRN Reason: Insomnia Last Admin: 08/24/22 20:32 Dose: 50 mg Allergies Allergies Allergy/AdvReac Type Severity Reaction Status Date / Time Penicillins Allergy Unknown Verified 08/22/22 22:06 seafood Allergy Unknown Verified 08/24/22 17:47 shellfish derived Allergy Unknown Verified 08/22/22 22:05 Assessment & Plan Assessment & Plan (1) Schizoaffective disorder, depressive type: Status: Acute Code(s): F25.1 - Schizoaffective disorder, depressive type (2) PTSD (post-traumatic stress disorder): Status: Acute Code(s): F43.10 - Post-traumatic stress disorder, unspecified (3) Opioid dependence: Status: Acute Code(s): F11.20 - Opioid dependence, uncomplicated (4) Opioid use disorder: Status: Acute Code(s): F11.90 - Opioid use, unspecified, uncomplicated (5) Alcohol dependence: Status: Acute Code(s): F10.20 - Alcohol dependence, uncomplicated (6) Cocaine use disorder: Status: Acute Code(s): F14.10 - Cocaine abuse, uncomplicated (7) Epilepsy: Status: Acute Code(s): G40.909 - Epilepsy, unspecified, not intractable, without status epilepticus Plan Patient is a 47-year-old male with reported history of schizophrenia, PTSD, opioid multiple psychiatric and missions, dependence on methadone and polysubstance abuse who presents for suicidal ideation and the face of substance abuse an intermittent missing her medication. -AH which seem to have resolved with restarting medications -patient drinks a pt of liquor a day and abuses Ativan 6 mg a day -will restart home meds except for Wellbutrin which will hold until better detoxed Hosptial course: 08/24 Patient reports he is feeling better today but still feeling much withdrawal. Corporate Trainer extended Ativan taper since patient is significantly scoring on CIWA.. Patient denies AH which he says is gotten better. Denies SI. Shared that he has grateful for help received on the unit. Discussed history of symptoms and patient said that he has auditory hallucinations that tell him to do bad things even during times absent of depression; when he gets depressed, AH gets much worse. Denies any history of manic episodes. Discussed patient's seizure history and he has not had any seizures since several months ago. -added clonidine for anxiety since Ativan is to be tapered and wanted to see if this could help with anxiety rather than increasing total daily dose of Seroquel; patient agrees if he stays sober maybe he will need Ativan so much -will change diagnosis to schizoaffective 08/26/22- Increase Librium to 50 mg tid Plan: CV Q 15 minute checks CIWA with p.r.n. Ativan Will also schedule Ativan taper given the fact that he has been abusing Ativan as well as drinking AND has a seizure disorder Continue methadone 240 mg daily Continue Seroquel 100 mg daily Continue Seroquel 200 mg q.h.s. Continue gabapentin 800 mg t.i.d. for seizure disorder Continue Trileptal 600 mg b.i.d. for seizure disorder Holding Wellbutrin XL 450 mg for now until better detox and patient has seizure disorder Patient could use help setting up social interactions post discharge, as loneliness is a factor in relapse Hospitalist note: 47-year-old male with past medical history of epilepsy, SI as well as schizophrenia comes into the hospital with psychosocial distress and SI epilepsy - continue antiepileptics 08/27/22 Continue current regime and plan. discharge 08/29/22. Patient educated on: medication risk/benefits and therapeutic strategies Informed Consent: understands Reason for continued inpatient stay Substantial Risk for: rapid decompensation Time Spent With Patient Time: Total time managing care of this patient today ____ minutes.
[2022-08-27 20:30] VITALS: BP 124/94; PULSE 87; TEMP 36; O2SAT 97
[2022-08-27] MEDS: Nicotine Polacrilex 2 MG GUM 4 MG BUCCAL (20:39)
[2022-08-27] MEDS: QUEtiapine Fumarate 200 MG TABLET PO (20:40)
[2022-08-27] MEDS: traZODone HCL 50 MG TABLET PO (20:40)
[2022-08-28 08:23] VITALS: BP 122/84; PULSE 83; RESP 16; TEMP 36.5; O2SAT 97
[2022-08-28] MEDS: OXcarbazepine 300 MG TABLET 600 MG PO (08:25)
[2022-08-28] MEDS: cloNIDine HCL 0.1 MG TABLET PO ×2 (08:25→14:30)
[2022-08-28] MEDS: Gabapentin 400 MG CAPSULE 800 MG PO ×2 (08:25→14:30)
[2022-08-28] MEDS: Multivitamin TABLET 1 TAB PO (08:25)
[2022-08-28] MEDS: chlordiazePOXIDE HCl 25 MG CAPSULE 50 MG PO (08:25)
[2022-08-28] MEDS: Thiamine HCL 100 MG TABLET PO (08:26)
[2022-08-28] MEDS: QUEtiapine Fumarate 100 MG TABLET PO (08:26)
[2022-08-28] MEDS: Folic Acid 1 MG TABLET PO (08:26)
[2022-08-28] MEDS: methADONE HCl 20 MG/2 ML ORAL.CONC 240 MG PO (08:29)
--- NOTE | 2022-08-28 14:42 | P.PNPSI_ITS ---
Subjective Subjective Date of Service: 08/28/22 Reason For Visit: Paranoia Schizophrenia,PTSD Subjective Notes: Conditional Voluntary Healthcare Proxy: No Guardianship: No Medical Problems Affecting Mental Status: No Interim History: Pt prepared for discharge. Reviewed meds, plan and he is in agreement. Denies LALO GILMORE. Notified by Dr. Krishnan at 1641 that team sent a message to him stating they changed pt's room and he was yelling, swearing and refusing to move. Team requested an immediate discharge. Renetta Marie RN reported pt was yelling in the hallway, swearing. She reports Tammy Lawton RN talked with him about the change with other team members, however pt reports no one addressed him with this change and rationale. Tammy reports pt was caustic when informed. Met with pt. When approached he is napping in the common area on the sofa. He was in good control, states someone grabbed his clothes and told him he was moving. States security was present. Look, I have a temper too, could they have asked me.? States it is not a bad thing that he needs to move as he did stru ggle with his previous room-mate. Discussed what would be the best way to manage this evening. Pt agrees that if he could go home it would be the best plan. He will go to his [facility] in the [place]m[facility] which is next to his pharmacy. He does have some of his meds at home and can cover his evening doses he reports. He denies LALO GILMORE, has no sx of maryuri, psychosis and requests a last dose letter and transportation to his home in [place], [place]. Discussed with Renetta Story APRN, Lawn Specialist who will help team complete pt's discharge. Medication Compliance: Yes Side effects from medications: No Attending Groups: No Review of Systems Acute medical concerns: No Medical Review of Systems: unchanged Mental Status Exam Mental Status Exam Patient Appearance: Appropriate Patient Orientation: Person, Place, Time and Situation Level of Consciousness: Alert Patient Behavior: Appropriate, Talkative, Cooperative and Good Eye Contact Mood Description: Labile (when confronted, and intermittently. angers easily), Flat and Apprehensive Affect Description: Labile and Flat Patient Cognition Impaired: No Ability to Follow Directions: Good Speech Pattern: Spontaneous Speech Memory Description: Intact Hallucinations: None Delusions: Not Present Thought Process: Intact and Goal Oriented Thought Content: positive for [place], positive for Circumstantial, positive for Suicidal Ideation (denies) and positive for Homicidal Ideation (denies) Judgement: Good Diagnostics Vital Signs (24Hr): Vital Signs - 24 hr 08/27/22 14:44 08/27/22 20:30 08/28/22 08:23 Temperature 96.8 F 97.7 F Pulse Rate 84 87 83 Respiratory Rate 16 Blood Pressure 136/94 H 124/94 H 122/84 Pulse Oximetry 97 97 Oxygen Delivery Method Room Air Room Air Labs 08/27/22 08:29 08/23/22 07:16 Labs: Laboratory Results - last 48 hr 08/27/22 08/27/22 08/27/22 08:28 08:29 08:29 WBC 9.6 RBC 5.14 Hgb 15.9 Hct 49.3 MCV 95.9 MCH 30.9 MCHC 32.3 RDW 13.6 Plt Count 241 MPV 10.2 Immature Gran % (Auto) 3.1 H Neut % (Auto) 46.4 Lymph % (Auto) 32.6 [place] % (Auto) 13.0 H Eos % (Auto) 4.3 H Baso % (Auto) 0.6 Lymph # (Auto) 3.1 [place] # (Auto) 1.3 H Eos # (Auto) 0.4 Baso # (Auto) 0.1 Abs Immat Gran (auto) 0.30 H Absolute Neuts (auto) 4.4 Absolute Nucleated RBC 0.000 Nucleated RBC % (auto) 0.0 Vitamin B12 623 Folate 12.3 TSH 1.62 Medications Medications Current Medications Acetaminophen (Acetaminophen 325 Mg Tablet) 650 mg PO Q6H PRN PRN Reason: Headache/Pain Mild Scale (1-3) Last Admin: 08/23/22 20:14 Dose: 650 mg Al Hydroxide/Mg Hydroxide (Magnesium Hydrox/Alum Hydrox 30 Ml Oral.Susp) 30 ml PO Q6H PRN PRN Reason: Heartburn/Nausea Chlordiazepoxide HCl (Chlordiazepoxide Hcl 25 Mg Capsule) 25 mg PO Q2H PRN PRN Reason: CIWA 6-10 Chlordiazepoxide HCl (Chlordiazepoxide Hcl 25 Mg Capsule) 50 mg PO Q2H PRN PRN Reason: ciwa 11 and above Last Admin: 08/25/22 17:12 Dose: 50 mg Chlordiazepoxide HCl (Chlordiazepoxide Hcl 25 Mg Capsule) 50 mg PO BID [facility] Clonidine HCl (Clonidine Hcl 0.1 Mg Tablet) 0.1 mg PO Q4H PRN PRN Reason: Anxiety Last Admin: 08/27/22 09:58 Dose: 0.1 mg Clonidine HCl (Clonidine Hcl 0.1 Mg Tablet) 0.1 mg PO TID [facility]; Protocol Last Admin: 08/28/22 14:30 Dose: 0.1 mg Folic Acid (Folic Acid 1 Mg Tablet) 1 mg PO DAILY [facility] Last Admin: 08/28/22 08:26 Dose: 1 mg Gabapentin (Gabapentin 400 Mg Capsule) 800 mg PO TID [facility] Last Admin: 08/28/22 14:30 Dose: 800 mg Hydroxyzine HCl (Hydroxyzine Hcl 25 Mg Tablet) 25 mg PO Q6H PRN PRN Reason: Anxiety Last Admin: 08/26/22 08:45 Dose: 25 mg Magnesium Hydroxide (Milk Of Magnesia 30 Ml Oral.Susp) 30 ml PO DAILY PRN PRN Reason: Constipation Methadone HCl (Methadone Hcl 20 Mg/2 Ml Oral.Conc) 240 mg PO DAILY [facility] Last Admin: 08/28/22 08:29 Dose: 240 mg Multivitamins/Vitamin C (Multivitamin Tablet) 1 tab PO DAILY [facility] Last Admin: 08/28/22 08:25 Dose: 1 tab Nicotine (Nicotine 21 Mg Patch.Td24) 21 mg TRANSDERMA DAILY PRN PRN Reason: Nicotine Cravings Nicotine Polacrilex (Nicotine Polacrilex 2 Mg Gum) 4 mg BUCCAL Q2H PRN PRN Reason: Nicotine Cravings Last Admin: 08/27/22 20:39 Dose: 4 mg Oxcarbazepine (Oxcarbazepine 300 Mg Tablet) 600 mg PO BID [facility] Last Admin: 08/28/22 08:25 Dose: 600 mg Promethazine HCl (Promethazine Hcl 25 Mg Tablet) 50 mg PO DAILY PRN PRN Reason: Nausea Last Admin: 08/26/22 16:53 Dose: 50 mg Quetiapine Fumarate (Quetiapine Fumarate 100 Mg Tablet) 100 mg PO DAILY [facility] Last Admin: 08/28/22 08:26 Dose: 100 mg Quetiapine Fumarate (Quetiapine Fumarate 200 Mg Tablet) 200 mg PO BEDTIME [facility] Last Admin: 08/27/22 20:40 Dose: 200 mg Quetiapine Fumarate (Quetiapine Fumarate 25 Mg Tablet) 25 mg PO TID PRN PRN Reason: Anxiety Thiamine HCl (Thiamine Hcl 100 Mg Tablet) 100 mg PO DAILY [facility] Last Admin: 08/28/22 08:26 Dose: 100 mg Trazodone HCl (Trazodone Hcl 50 Mg Tablet) 50 mg PO BEDTIME MRX1 PRN PRN Reason: Insomnia Last Admin: 08/27/22 20:40 Dose: 50 mg Allergies Allergies Allergy/AdvReac Type Severity Reaction Status Date / Time Penicillins Allergy Unknown Verified 08/22/22 22:06 seafood Allergy Unknown Verified 08/24/22 17:47 shellfish derived Allergy Unknown Verified 08/22/22 22:05 Assessment & Plan Assessment & Plan (1) Schizoaffective disorder, depressive type: Status: Acute Code(s): F25.1 - Schizoaffective disorder, depressive type (2) PTSD (post-traumatic stress disorder): Status: Acute Code(s): F43.10 - Post-traumatic stress disorder, unspecified (3) Opioid dependence: Status: Acute Code(s): F11.20 - Opioid dependence, uncomplicated (4) Opioid use disorder: Status: Acute Code(s): F11.90 - Opioid use, unspecified, uncomplicated (5) Alcohol dependence: Status: Acute Code(s): F10.20 - Alcohol dependence, uncomplicated (6) Cocaine use disorder: Status: Acute Code(s): F14.10 - Cocaine abuse, uncomplicated (7) Epilepsy: Status: Acute Code(s): G40.909 - Epilepsy, unspecified, not intractable, without status epilepticus Plan Patient is a 47-year-old male with reported history of schizophrenia, PTSD, opioid multiple psychiatric and missions, dependence on methadone and polysubstance abuse who presents for suicidal ideation and the face of substance abuse an intermittent missing her medication. -AH which seem to have resolved with restarting medications -patient drinks a pt of liquor a day and abuses Ativan 6 mg a day -will restart home meds except for Wellbutrin which will hold until better detoxed Hosptial course: 08/24 Patient reports he is feeling better today but still feeling much withdrawal. Malariologist extended Ativan taper since patient is significantly scoring on CIWA.. Patient denies AH which he says is gotten better. Denies SI. Shared that he has grateful for help received on the unit. Discussed history of symptoms and patient said that he has auditory hallucinations that tell him to do bad things even during times absent of depression; when he gets depressed, AH gets much worse. Denies any history of manic episodes. Discussed patient's seizure history and he has not had any seizures since several months ago. -added clonidine for anxiety since Ativan is to be tapered and wanted to see if this could help with anxiety rather than increasing total daily dose of Seroquel; patient agrees if he stays sober maybe he will need Ativan so much -will change diagnosis to schizoaffective 08/26/22- Increase Librium to 50 mg tid Plan: CV Q 15 minute checks CIWA with p.r.n. Ativan Will also schedule Ativan taper given the fact that he has been abusing Ativan as well as drinking AND has a seizure disorder Continue methadone 240 mg daily Continue Seroquel 100 mg daily Continue Seroquel 200 mg q.h.s. Continue gabapentin 800 mg t.i.d. for seizure disorder Continue Trileptal 600 mg b.i.d. for seizure disorder Holding Wellbutrin XL 450 mg for now until better detox and patient has seizure disorder Patient could use help setting up social interactions post discharge, as loneliness is a factor in relapse Hospitalist note: 47-year-old male with past medical history of epilepsy, SI as well as schizophrenia comes into the hospital with psychosocial distress and SI epilepsy - continue antiepileptics 08/28/22 Discharge to home this evening. Aftercare planning is in place. Patient educated on: medication risk/benefits and therapeutic strategies Informed Consent: understands Reason for continued inpatient stay Substantial Risk for: rapid decompensation Time Spent With Patient Time: Total time managing care of this patient today ____ minutes.
--- NOTE | 2022-08-28 18:08 | P.DS_ITS ---
DS: Providers Provider Date of Service: 08/28/22 Date of admission: 08/22/22 21:31 Date of discharge: 08/28/22 Primary care physician: Unknown Physician Admitting clinician: Hal Krishnan Attending physician on admission: Hal Krishnan Consults: 08/22/22 22:43 Consult to Hospitalist Routine Comment: Consulting Provider: Hospitalist Reason For Exam: admission physical Attending physician on discharge: Nick Zarco Discharging clinician: Yvonne Weber DS: Diagnosis Discharge Diagnosis (1) Schizoaffective disorder, depressive type: Status: Acute (2) PTSD (post-traumatic stress disorder): Status: Acute (3) Opioid dependence: Status: Deleted (4) Opioid use disorder: Status: Acute (5) Alcohol dependence: Status: Acute (6) Cocaine use disorder: Status: Acute (7) Epilepsy: Status: Acute DS: Medications Discharge Medications Home Medications: Home Medications Medication Instructions Recorded Confirmed methadone 10 mg tablet 240 mg PO DAILY 08/22/22 08/22/22 promethazine 50 mg PO DAILY PRN Nausea 08/22/22 08/22/22 Previous Rx's Medication Instructions Recorded Seroquel 200 mg PO BEDTIME #30 tabs 08/28/22 chlordiazepoxide HCl 25 mg capsule 25 mg PO BID PRN anxiety #14 caps 08/28/22 chlordiazepoxide HCl 25 mg capsule 25 mg PO DAILY PRN anxiety #7 caps 08/28/22 chlordiazepoxide HCl 25 mg capsule 25 mg PO TID PRN anxiety #21 caps 08/28/22 clonidine (PF) 0.1 mg PO TID PRN Anxiety #45 tabs 08/28/22 folic acid 1 mg tablet 1 mg PO DAILY #30 tabs 08/28/22 gabapentin 800 mg tablet 800 mg PO TID #45 tabs 08/28/22 (Neurontin) multivitamin (Daily-Darrel tablet) 1 tab PO DAILY #30 tabs 08/28/22 nicotine (polacrilex) 2 mg gum 4 mg buccal Q2H PRN Nicotine 08/28/22 Cravings #60 ea nicotine 21 mg/24 hr daily 21 mg transdermal DAILY PRN 08/28/22 transdermal patch Nicotine Cravings #30 ea oxcarbazepine 600 mg PO BID #60 tabs 08/28/22 quetiapine 100 mg tablet (Seroquel) 100 mg PO DAILY #30 tabs 08/28/22 quetiapine 25 mg tablet 25 mg PO TID PRN Anxiety #45 tabs 08/28/22 thiamine mononitrate (vit B1) 100 100 mg PO DAILY #30 tabs 08/28/22 mg tablet Mental Status Exam Mental Status Exam Patient Appearance: Appropriate Patient Orientation: Person, Place, Time and Situation Level of Consciousness: Alert Patient Behavior: Appropriate, Talkative, Cooperative and Good Eye Contact Mood Description: Flat and Apprehensive Affect Description: Flat Patient Cognition Impaired: No Ability to Follow Directions: Good Speech Pattern: Spontaneous Speech Memory Description: Intact Hallucinations: None Delusions: Not Present Thought Process: Intact and Goal Oriented Thought Content: positive for Glade, positive for Circumstantial, positive for Suicidal Ideation (denies) and positive for Homicidal Ideation (denies) Judgement: Good Data Data Completed and Pending Completed studies during hospitalization [Text1]: 08/23/22 08/23/22 08/27/22 07:16 07:16 08:28 WBC RBC Hgb Hct MCV MCH MCHC RDW Plt Count MPV Immature Gran % (Auto) Neut % (Auto) Lymph % (Auto) Crowley % (Auto) Eos % (Auto) Baso % (Auto) Lymph # (Auto) Crowley # (Auto) Eos # (Auto) Baso # (Auto) Abs Immat Gran (auto) Absolute Neuts (auto) Absolute Nucleated RBC Nucleated RBC % (auto) Sodium 137 Potassium 4.5 Chloride 101 Carbon Dioxide 28 Anion Gap 13 BUN 13 Creatinine 0.86 Estim Creat Clear Calc TNP Estimated GFR > 60 Fasting Glucose 108 H Estimat Average Glucose 111 Hemoglobin A1c % 5.5 Calcium 9.2 Total Bilirubin 0.4 AST 30 ALT 38 Alkaline Phosphatase 81 Total Protein 7.2 Albumin 3.5 Triglycerides 187 Cholesterol 183 LDL Cholesterol, Calc 104 HDL Cholesterol 42 Vitamin B12 Folate TSH 1.62 08/27/22 08/27/22 08:29 08:29 WBC 9.6 RBC 5.14 Hgb 15.9 Hct 49.3 MCV 95.9 MCH 30.9 MCHC 32.3 RDW 13.6 Plt Count 241 MPV 10.2 Immature Gran % (Auto) 3.1 H Neut % (Auto) 46.4 Lymph % (Auto) 32.6 Crowley % (Auto) 13.0 H Eos % (Auto) 4.3 H Baso % (Auto) 0.6 Lymph # (Auto) 3.1 Crowley # (Auto) 1.3 H Eos # (Auto) 0.4 Baso # (Auto) 0.1 Abs Immat Gran (auto) 0.30 H Absolute Neuts (auto) 4.4 Absolute Nucleated RBC 0.000 Nucleated RBC % (auto) 0.0 Sodium Potassium Chloride Carbon Dioxide Anion Gap BUN Creatinine Estim Creat Clear Calc Estimated GFR Fasting Glucose Estimat Average Glucose Hemoglobin A1c % Calcium Total Bilirubin AST ALT Alkaline Phosphatase Total Protein Albumin Triglycerides Cholesterol LDL Cholesterol, Calc HDL Cholesterol Vitamin B12 623 Folate 12.3 TSH DS: Summary Hospital Course Hospital Course: Admission to adult psychiatry for exacerbation of PTSD, Schizoaffective Disorder, Depressed, Cocaine,Alcohol Use Disorder. Pt reports having missed many doses of medications prior to admission. Medications were evaluated and adjust ed. Pt was encouraged to utilize the milieu. Aftercare planning was completed. Pt was referred to [facility] for psychotherapy and psychiatry services upon discharge. Time spent discussing smoking cessation with patient: 3 to 10 minutes Status at Discharge Functional status at discharge: independent ambulation Overall status at discharge: patient is progressing back to baseline Time Spent with Patient Time attestation: Total time managing care of this patient today ____ minutes. Time spent: Greater than 30 minutes Discharge Plan Discharge Anticipated Discharge Date/Time: 08/28/22 18:00 Patient Disposition: Home, Self-Care Discharge Diagnosis: PTSD Schizoaffective Disorder, Depressed Type Epilepsy Cocaine, Opiate, Alcohol Use Disorders Referrals: [facility] [Other] - 1 Week (wak in referral) Mikael Hunt (Therapy): [facility] [Other] - 09/01/22 1:00 pm (Diagnostic evaluation for therapy ) Sally Thayer (psychiatry): [facility] [Other] - 09/24/22 3:20 pm (Initial Psychiatric Evaluation for medication management Appointment is by tele-health ) Sally Thayer (psychiatry): [facility] [Other] - 10/29/22 4:30 pm (medication management appointment tele-health) Discharge Medications: New multivitamin [Daily-Darrel] Tablet 1 tab PO DAILY Qty: 30 0RF quetiapine 25 mg Tablet 25 mg PO TID PRN (Reason: Anxiety) Qty: 45 1RF nicotine (polacrilex) 2 mg Gum 4 mg buccal Q2H PRN (Reason: Nicotine Cravings) Qty: 60 0RF nicotine 21 mg/24 hr Patch 24 Hour 21 mg transdermal DAILY PRN (Reason: Nicotine Cravings) Qty: 30 0RF folic acid 1 mg Tablet 1 mg PO DAILY Qty: 30 0RF thiamine mononitrate (vit B1) 100 mg Tablet 100 mg PO DAILY Qty: 30 0RF chlordiazepoxide HCl 25 mg capsule 25 mg PO TID PRN (Reason: anxiety) Qty: 21 0RF Rx Instructions: Taper, August 28-2022 chlordiazepoxide HCl 25 mg capsule 25 mg PO BID PRN (Reason: anxiety) Qty: 14 0RF Rx Instructions: Taper, September 04- Sep 11, 2022 chlordiazepoxide HCl 25 mg capsule 25 mg PO DAILY PRN (Reason: anxiety) Qty: 7 1RF Rx Instructions: Taper, September [id number] [id number] Continued promethazine 50 mg PO DAILY PRN (Reason: Nausea) methadone 10 mg Tablet 240 mg PO DAILY quetiapine [Seroquel] 100 mg Tablet 100 mg PO DAILY Qty: 30 0RF gabapentin [Neurontin] 800 mg Tablet 800 mg PO TID Qty: 45 1RF Seroquel 200 mg PO BEDTIME Qty: 30 0RF clonidine (PF) 0.1 mg PO TID PRN (Reason: Anxiety) Qty: 45 1RF oxcarbazepine 600 mg PO BID Qty: 60 0RF Discontinued Seroquel 150 mg PO NEEDED PRN (Reason: Anxiety) bupropion HCl 450 mg PO DAILY Discharge Orders: Discharge Order (Routine); Ordered 08/28/22 Ordered By: Yvonne Weber Diet: Advance to usual diet Activity on Discharge: As tolerated Stand Alone Forms: Patient Portal Discharge page, Community Support Care Plan Goals: Mood and Behavioral Stabilization Sobriety Health Concerns: Mood and Behavioral Stabilization Sobriety Plan of Treatment: Attend follow up appointments Take medications as directed Chlordiazepoxide tapering 1. 25 mg three times per day from August 282022 2. 25 mg twice per day from September 04 to September 11, 2022 3. 25 mg daily from September 112022 Please call Aly Leon [facility] [phone] on Thursday, August 29, 2022 to obtain your appointment dates and times for out patient services. Assessment: Pt interviewed prior to discharge and found to be fully oriented and without SI/HI. Pt has insight and demonstrates good judgment in terms of wanting to pursue treatment. Pt is not in imminent risk of harm to self or others and has a safety plan that includes presenting to the closest ER or calling 911 if feeling unsafe Pt has been observed closely by nursing and unit staff throughout admission Pt has not engaged in any behaviors that suggest dangerousness to self or others and has demonstrated appropriate behaviors and impulse control. Discharge Date/Time: 08/28/22 19:08
== END 2022-08-28 19:08 | disposition home or self-care (01) | DRG 750 ==
PROVIDERS: Admitting Provider Psychiatry & Neurology Psychiatry; Visit Provider Clinical Nurse Specialist Psychiatric/Mental Health, Adult
DX: F25.1 Schizoaffective disorder, depressive type (principal); R45.851 Suicidal ideations; G40.509 Epileptic seizures related to external causes, not intractable, without status epilepticus; Z91.199 Patient's noncompliance with other medical treatment and regimen due to unspecified reason; F43.10 Post-traumatic stress disorder, unspecified; F11.20 Opioid dependence, uncomplicated; F14.10 Cocaine abuse, uncomplicated; F19.10 Other psychoactive substance abuse, uncomplicated; F17.210 Nicotine dependence, cigarettes, uncomplicated; Z71.6 Tobacco abuse counseling; Z79.899 Other long term (current) drug therapy
CPT/HCPCS: 36415; 80053; 80061; 82607; 82746; 83036; 84443; 85025

== ENCOUNTER → 2022-08-22 21:31 | Outpatient (BNV) | payer OTHER, SELFPAY | PROVIDERS: Admitting Provider Psychiatry & Neurology Psychiatry; Visit Provider Psychiatry & Neurology Psychiatry | DX: F25.1 Schizoaffective disorder, depressive type (principal); F43.10 Post-traumatic stress disorder, unspecified; F11.20 Opioid dependence, uncomplicated; F10.20 Alcohol dependence, uncomplicated; F14.10 Cocaine abuse, uncomplicated; G40.909 Epilepsy, unspecified, not intractable, without status epilepticus | CPT/HCPCS: 99231; 99232; 99499 ==

== ENCOUNTER → 2022-08-22 21:31 | Outpatient (BNV) | payer MEDICAID, SELFPAY | PROVIDERS: Admitting Provider Psychiatry & Neurology Psychiatry; Visit Provider Internal Medicine | DX: Z65.8 Other specified problems related to psychosocial circumstances (principal); R45.851 Suicidal ideations | CPT/HCPCS: 99223 ==